=== PATIENT | female | born 1945 | race Caucasian/White ===

== ENCOUNTER 2024-10-31 10:00 | Day surgery (SDC) | payer MEDICARE ==
[~2024-10-31] VITALS: Ht 160 cm; Wt 72.7 kg
[~2024-10-31 10:00] MED LIST: LEVO88TA7 PO; LORAZEPAM
[2024-10-31 11:19] VITALS: BP 136/71; PULSE 85; RESP 16; TEMP 99.9
[2024-10-31] MEDS ORDERED: midazolam 1 mg/ML 2ml injection ONE (12:03)
[2024-10-31] MEDS ORDERED: fentaNYL/PF 50MCG/1 ML 2ML syringe ONE (12:07)
[2024-10-31] MEDS ORDERED: propofol inj 20 ML IV ONE (12:23)
[2024-10-31 12:27] VITALS: BP 118/55; PULSE 78; RESP 19; O2SAT 96
[2024-10-31 12:30] VITALS: BP 119/59; PULSE 81; RESP 20; O2SAT 96
[2024-10-31 12:40] VITALS: BP 127/60; PULSE 66; RESP 16; O2SAT 96
[2024-10-31 12:50] VITALS: BP 136/48; PULSE 74; RESP 12; O2SAT 98
[2024-10-31 13:00] VITALS: BP 122/62; PULSE 76; RESP 21; O2SAT 97
== END 2024-10-31 13:10 | disposition home or self-care (01) ==
LOC: GI LAB 10:00
PROVIDERS: ATTEND Internal Medicine Gastroenterology
DX: Z09 Encounter for follow-up examination after completed treatment for conditions other than malignant neoplasm (principal); K57.30 Diverticulosis of large intestine without perforation or abscess without bleeding; K64.8 Other hemorrhoids; E03.9 Hypothyroidism, unspecified; Z86.0100 Personal history of colon polyps, unspecified; Z79.899 Other long term (current) drug therapy; Z98.84 Bariatric surgery status
CPT/HCPCS: 45378; A4620; J2250; J2704; J3010; J7030; Z7512